=== PATIENT | female | born 1945 | race Caucasian/White ===

== ENCOUNTER 2021-04-13 05:39 | Outpatient (CLI) | payer MEDICARE, OTHER ==
[~2021-04-13] VITALS: Ht 170.2 cm; Wt 72.6 kg
[2021-04-13] MEDS ORDERED: CITA40TA11 PO (10:21)
[2021-04-13] MEDS ORDERED: MV-M1TAB20 PO (10:21)
[2021-04-13] MEDS ORDERED: VITA1CAP19 PO (10:21)
[2021-04-13] MEDS ORDERED: ROSU10TA28 PO (10:21)
[2021-04-13] MEDS ORDERED: OLME20TA24 PO (10:21)
[2021-04-13] MEDS ORDERED: MULT400C3 PO (10:21)
[2021-04-13] MEDS ORDERED: NF-VITD400 PO (10:22)
== END 2021-04-13 10:27 | disposition home or self-care (01) ==
LOC: PREOP 05:39
PROVIDERS: ATTEND Surgery
DX: Z01.812 Encounter for preprocedural laboratory examination (principal); M99.86 Other biomechanical lesions of lower extremity

== ENCOUNTER 2021-04-15 11:00 | Day surgery (SDC) | payer MEDICARE, OTHER ==
[2021-04-15] VITALS (9 sets, daily range): BP systolic 123–182; BP diastolic 65–94
[~2021-04-15] VITALS: Ht 170.2 cm; Wt 72.6 kg
[~2021-04-15 11:00] MED LIST: CITA40TA11 PO; LIDOCAINE/EPI 1%-1:100,000 (XYLOCAINE) 20ML ONE; MULT400C3 PO; MV-M1TAB20 PO; NF-VITD400 PO; OLME20TA24 PO; ROSU10TA28 PO; VITA1CAP19 PO
[2021-04-15] MEDS ORDERED: ceFAZolin INJECTION 1,000 MG in WATER (STERILE) FOR INJECTION 10 ML IV ONE (11:15)
[2021-04-15] MEDS ORDERED: LACTATED RINGERS 1,000 ML IV PRN (11:15)
--- NOTE | 2021-04-15 11:37 | Progress Note-Pre Operative ---
Pre-Operative Progress Note H&P Reviewed The H&P was reviewed, patient examined and no changes noted. Date Seen by Provider: April 15, 2021 Time Seen by Provider: 11:37 Date H&P Reviewed: April 15, 2021 Time H&P Reviewed: 11:37 Pre-Operative Diagnosis: LEFT LEG SKIN LESION SIMONA BRADY DO April 15, 2021 11:37
[2021-04-15] MEDS ORDERED: MIDAZOLAM 2 MG/2 ML (VERSED) VIAL ONE (12:08)
[2021-04-15] MEDS ORDERED: fentaNYL INJ 100 MCG/2 ML AMP ONE (12:08)
[2021-04-15] MEDS ORDERED: SEVOFLURANE (ULTANE) 15 ML INHAL SOLN ONE (12:29)
[2021-04-15] MEDS ORDERED: proPOfol 200 MG/20 ML (DIPRIVAN) VIAL IV ONE (12:29)
[2021-04-15] MEDS ORDERED: ONDANSETRON 4 MG/2 ML (SDV) Z0FRAN ONE (12:29)
[2021-04-15] MEDS ORDERED: NEO/POLY/BAC (NEOSPORIN) OINT 15 GM TUBE ONE (12:51)
[2021-04-15] MEDS ORDERED: LIDOCAINE PF 2% 5 ML (XYLOCAINE) VIAL ONE (12:52)
--- NOTE | 2021-04-15 13:12 | Anesthesia-General Post-Op ---
General Patient Condition Mental Status/LOC: Same as Preop Cardiovascular: Satisfactory Nausea/Vomiting: Absent Respiratory: Satisfactory Pain: Controlled Complications: Absent Post Op Complications Complications None Follow Up Care/Instructions Patient Instructions None needed. Anesthesia/Patient Condition Patient Condition Patient is doing well, no complaints, stable vital signs, no apparent adverse anesthesia problems. No complications reported per nursing. VIANEY DIALLO CRNA April 15, 2021 13:12
--- NOTE | 2021-04-15 13:13 | Progress Note-Post Operative ---
Post-Operative Progess Note Surgeon (s)/Crystallographer (s) Surgeon SIMONA BRADY DO Crystallographer: na Pre-Operative Diagnosis LEFT LEG SKIN LESION Post-Operative Diagnosis same Procedure & Operative Findings Date of Procedure 04/15/21 Procedure Performed/Findings excision left lower extremity skin lesion 7x 3.5 cm Anesthesia Type general Estimated Blood Loss Estimated blood loss (mL): min Specimens/Packing Specimens Removed left lower ext skin lesion SIMONA BRADY DO April 15, 2021 13:13
[2021-04-15] MEDS ORDERED: ONDANSETRON 4 MG/2 ML (SDV) Z0FRAN IVP PRN (13:15)
[2021-04-15] MEDS ORDERED: PROMETHAZINE INJ 25 MG/ML (PHENERGAN) AMP IVP ONE (13:15)
[2021-04-15] MEDS ORDERED: morphine INJ 10 MG/ML 1ML (SYR OR VIAL) IVP ONE (13:15)
--- NOTE | 2021-04-15 13:15 | Discharge Inst-Simple/Standard ---
Discharge Inst-Standard Patient Instructions/Follow Up Plan of Care/Instructions/FU: 12-14 days Angella Activity as Tolerated: No Discharge Diet: Regular Diet Other Inst to Patient Follow up Appt: Make appointment for 12-14 days Angella Instructions: No strenuous activity. May shower in 24 hours, no tub bath or soaking. Use incentive spirometer at home as directed. No Smoking Skin/Wound Care: Keep incision clean and dry. Symptoms to Report: Appetite Changes, Extremity Discoloration, Numbness/Tingling, Swelling Increased, Bleeding Excessive, Eyesight Changes, Pain Increased, Urine Color Change, Constipation(Persistent), Fever over 101 degree F, Pain/Pressure in chest, Urinating Difficulty, Cough Up/Vomit Blood, Heart Beat Irreg/Pounding, Pain/Pressure in jaw, Vaginal Bleeding Increase, Cramps in feet or legs, Lightheadedness, Pain/Pressure in shoulder, Diarrhea(Persistent), Memory Changes Suddenly, Questions/Concerns, Weight gain consecutive days, Dizziness/Fainting, Nausea/Vomiting, Shortness of Breath, Weight gain over 2 pounds If questions or concerns contact your physician Or seek help at emergency department. SIMONA BRADY DO April 15, 2021 13:14
--- NOTE | 2021-04-15 19:51 | OPERATIVE REPORT ---
DATE OF SERVICE: 04/15/2021 PREOPERATIVE DIAGNOSIS: Left lower extremity skin lesion. POSTOPERATIVE DIAGNOSIS: Left lower extremity skin lesion. PROCEDURE: Excision of left lower extremity skin lesion 7 x 3.5 cm. SURGEON: Simona Perales DO ANESTHESIA: General. ESTIMATED BLOOD LOSS: Minimal. COMPLICATIONS: None. INDICATIONS: The patient is a 75-year-old female with a left lower extremity skin lesion increasing in size. She understands risks and benefits of procedure and wished to proceed with procedure. Consent was signed in the chart. DESCRIPTION OF PROCEDURE: The patient was taken to the operating suite. She was prepped and draped in sterile fashion. Timeout was performed. Local anesthetic was infiltrated. A 15-blade scalpel was used to make a skin incision measuring 7 x 3.5 cm. Cautery was used to dissect around the lesion removing the skin and subcutaneous tissue. The skin was then elevated circumferentially with cautery. The skin was then able to be closed using 0 Prolene in simple interrupted fashion. The area was then washed and dried, sterile bandage was applied. The patient tolerated procedure well without any complications. She was taken to recovery room in stable condition. Further recommendations pending biopsy results, pending pathology results. Job ID: [id number] DocumentID: [id number] Dictated Date: 04/15/2021 14:52:45 Special Client Bus Driver Date: 04/15/2021 19:51:11 Dictated By: SIMONA PERALES DO
== END 2021-04-15 15:30 | disposition home or self-care (01) ==
LOC: SDC 11:00
PROVIDERS: ATTEND Surgery
DX: C76.52 Malignant neoplasm of left lower limb (principal); I10 Essential (primary) hypertension; E78.00 Pure hypercholesterolemia, unspecified; E78.5 Hyperlipidemia, unspecified; Z79.899 Other long term (current) drug therapy; Z90.710 Acquired absence of both cervix and uterus
CPT/HCPCS: 87081

== ENCOUNTER → 2022-03-09 | Outpatient (CLI) | payer MEDICARE, OTHER ==
[~2022-03-09] MED LIST changes: -CITA40TA11 PO; +CITA40TA13 PO; -LIDOCAINE/EPI 1%-1:100,000 (XYLOCAINE) 20ML ONE
--- NOTE | 2022-03-09 11:39 | Diagnostic Imaging Report ---
INDICATION: Short of breath. COMPARISON: None. FINDINGS: Frontal and lateral views of the chest demonstrate normal heart size and pulmonary vascularity. The lungs are clear. There are no signs of infiltrate, pleural effusions or pneumothoraces. The visualized osseous structures show no acute abnormalities. IMPRESSION: 1. No acute process. No signs of infiltrates, effusions or pneumothoraces. Dictated by: Dictated on workstation # [id number]
== END ==
LOC: RAD 11:03
PROVIDERS: ATTEND Family Medicine
DX: R06.02 Shortness of breath (principal)
CPT/HCPCS: 71046

== ENCOUNTER → 2022-03-31 | Outpatient (CLI) | payer MEDICARE, OTHER ==
[2022-03-31 13:42] LABS: BASOPHILS # (AUTO) 0.1 10^3/uL (0.0-0.1); BASOPHILS % (AUTO) 1 % (0-10); EOSINOPHILS # (AUTO) 0.2 10^3/uL (0.0-0.3); EOSINOPHILS % (AUTO) 3 % (0-10); HEMATOCRIT 40 % (35-52); HEMOGLOBIN 13.1 g/dL (11.5-16.0); LYMPHOCYTES # (AUTO) 1.8 10^3/uL (1.0-4.0); LYMPHOCYTES % (AUTO) 33 % (12-44); MEAN CORPUSCULAR HEMOGLOBIN 30 pg (25-34); MEAN CORPUSCULAR HGB CONC 33 g/dL (32-36); MEAN CORPUSCULAR VOLUME 89 fL (80-99); MEAN PLATELET VOLUME 9.4 fL (9.0-12.2); MONOCYTES # (AUTO) 0.6 10^3/uL (0.0-1.0); MONOCYTES % (AUTO) 10 % (0-12); NEUTROPHILS # (AUTO) 2.8 10^3/uL (1.8-7.8); NEUTROPHILS % (AUTO) 52 % (42-75); PLATELET COUNT 244 10^3/uL (130-400); WHITE BLOOD COUNT 5.3 10^3/uL (4.3-11.0)
[2022-03-31 13:57] LABS: ALBUMIN 4.1 GM/DL (3.2-4.5); BILIRUBIN,TOTAL 0.6 MG/DL (0.1-1.0); CALCIUM 9.7 MG/DL (8.5-10.1); CREATININE SERUM 0.69 MG/DL (0.60-1.30); POTASSIUM 4.5 MMOL/L (3.6-5.0); TOTAL PROTEIN 7.1 GM/DL (6.4-8.2)
== END ==
LOC: LAB 13:27
PROVIDERS: ATTEND Family Medicine
DX: N28.9 Disorder of kidney and ureter, unspecified (principal)
CPT/HCPCS: 36415; 80053; 84443; 85025

== ENCOUNTER → 2022-04-19 | Outpatient (CLI) | payer MEDICARE, OTHER ==
[~2022-04-19] MED LIST changes: +CATHETER FLUSH 10 ML SYR IV PRN; +HOLD METFORMIN - RECEIVED CONTRAST 20 ML VIAL IV SCH; +IOHEXOL 350 MG/ML 100 ML (OMNIPAQUE 350) VIAL IV ONE; +NS 100 ML (IVPB) BAG IV ONE; +RT-ALBUTEROL SULF 2.5 MG/3 ML PRE-MIX VIAL INH ONE
--- NOTE | 2022-04-19 09:39 | Diagnostic Imaging Report ---
EXAMINATION: CT chest with intravenous contrast. TECHNIQUE: Multiple contiguous axial images were obtained through the chest after the uneventful administration of intravenous contrast. All CT scans use one or more of the following dose optimizing techniques: automated exposure control, MA and/or KvP adjustment based on patient size and exam type or iterative reconstruction. HISTORY: Shortness of breath. COVID in the fall 2020. COMPARISON: 03/09/2022. FINDINGS: The heart size is within normal limits. No pericardial effusion is present. There is calcified aortic and coronary atherosclerotic plaque without aneurysm. There is no mediastinal, hilar, or axillary lymphadenopathy. Nodules are seen in the right lower lobe measuring 0.9 cm. These have a somewhat tubular appearance. There are no focal areas of consolidation. No central endobronchial obstructing lesions are identified. There is no pleural effusion or pneumothorax. The osseous structures demonstrate no acute abnormalities. Limited views of the upper abdominal structures demonstrate no acute abnormalities. Both adrenal glands are unremarkable. IMPRESSION: 1. Nodule in the right lower lobe measuring up to 0.9 cm with a somewhat tubular appearance. These findings are favored to be benign however given the size of the nodule follow-up is recommended in 3-[address] to ensure stability or resolution. 2. No focal consolidations. No evidence of pulmonary fibrosis or significant pulmonary scarring. Dictated by: Dictated on workstation # [id number]
== END ==
LOC: RT 08:42
PROVIDERS: ATTEND Family Medicine
DX: R91.1 Solitary pulmonary nodule (principal); R06.02 Shortness of breath; R53.83 Other fatigue; Z86.16 Personal history of COVID-19
CPT/HCPCS: 71260; 94060; 94726; 94729

== ENCOUNTER 2022-08-21 17:23 | Observation (INO) | payer MEDICARE, OTHER ==
[~2022-08-21] VITALS: Ht 167.7 cm; Wt 71.8 kg
[~2022-08-21 17:23] MED LIST changes: -CATHETER FLUSH 10 ML SYR IV PRN; -HOLD METFORMIN - RECEIVED CONTRAST 20 ML VIAL IV SCH; -IOHEXOL 350 MG/ML 100 ML (OMNIPAQUE 350) VIAL IV ONE; -NS 100 ML (IVPB) BAG IV ONE; -RT-ALBUTEROL SULF 2.5 MG/3 ML PRE-MIX VIAL INH ONE
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
[2022-08-21 17:45] LABS: BASOPHILS % (AUTO) 1 % (0-10); EOSINOPHILS % (AUTO) 0 % (0-10); HEMATOCRIT 39 % (35-52); LYMPHOCYTES # (AUTO) 1.5 10^3/uL (1.0-4.0); LYMPHOCYTES % (AUTO) 20 % (12-44); MEAN CORPUSCULAR HEMOGLOBIN 29 pg (25-34); MEAN CORPUSCULAR HGB CONC 34 g/dL (32-36); MEAN CORPUSCULAR VOLUME 88 fL (80-99); MEAN PLATELET VOLUME 10.1 fL (9.0-12.2); MONOCYTES # (AUTO) 0.4 10^3/uL (0.0-1.0); MONOCYTES % (AUTO) 5 % (0-12); NEUTROPHILS # (AUTO) 5.3 10^3/uL (1.8-7.8); NEUTROPHILS % (AUTO) 73 % (42-75); PLATELET COUNT 294 10^3/uL (130-400); WHITE BLOOD COUNT 7.2 10^3/uL (4.3-11.0)
[2022-08-21 17:49] LABS: ALBUMIN 4.1 GM/DL (3.2-4.5)
[2022-08-21 17:50] LABS: CHLORIDE 102 MMOL/L (98-107); POTASSIUM 4.1 MMOL/L (3.6-5.0); SODIUM 134 MMOL/L (135-145)
[2022-08-21 17:51] LABS: CALCIUM 9.2 MG/DL (8.5-10.1); PROTHROMBIN TIME PATIENT 13.9 SEC (12.2-14.7)
[2022-08-21 17:52] LABS: GLUCOSE 163 MG/DL (70-105); TOTAL PROTEIN 7.4 GM/DL (6.4-8.2)
[2022-08-21 17:53] LABS: CARBON DIOXIDE 23 MMOL/L (21-32)
[2022-08-21 17:54] LABS: BILIRUBIN,TOTAL 0.7 MG/DL (0.1-1.0)
[2022-08-21 17:55] LABS: ALKALINE PHOSPHATASE 82 U/L (40-136)
[2022-08-21 17:56] LABS: CREATININE SERUM 0.79 MG/DL (0.60-1.30); GFR ESTIMATED 77
[2022-08-21 17:57] LABS: BUN/CREATININE RATIO 24
[2022-08-21 17:58] LABS: ALANINE AMINOTRANSFERASE 9 U/L (0-55)
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
--- NOTE | 2022-08-21 18:05 | Diagnostic Imaging Report ---
EXAM: Chest 1 view, AP/PA only INDICATION: Syncope. COMPARISON: Chest radiograph 03/09/2022. FINDINGS: Normal heart size and central pulmonary vascularity. Lungs are clear. No pleural effusion or pneumothorax. No acute osseous finding. IMPRESSION: No acute cardiopulmonary finding. Dictated by: Dictated on workstation # [id number]
[2022-08-21 18:08] VITALS: BP_SYST 125; BP_SYST 128; BP_SYST 137; BP_DIAS 51; BP_DIAS 62; BP_DIAS 70
[2022-08-21 18:21] LABS: AMPHETAMINE SCREEN, URINE NEGATIVE (NEGATIVE); BARBITURATE SCREEN URINE NEGATIVE (NEGATIVE); BENZODIAZEPINES SCREEN URINE POSITIVE (NEGATIVE); CANNABINOID SCREEN, URINE NEGATIVE (NEGATIVE); COCAINE SCREEN URINE NEGATIVE (NEGATIVE); METHADONE STAT NEGATIVE (NEGATIVE); OPIATE SCREEN URINE NEGATIVE (NEGATIVE); OXYCODONE STAT NEGATIVE (NEGATIVE); PROPOXYPHENE STAT NEGATIVE (NEGATIVE); TRICYCLIC ANTIDEPRESSANTS SCRE NEGATIVE (NEGATIVE)
[2022-08-21 18:39] LABS: BILIRUBIN,URINE NEGATIVE (NEGATIVE); CLARITY,URINE CLEAR; COLOR,URINE YELLOW; GLUCOSE, URINE (UA) NEGATIVE (NEGATIVE); KETONES,URINE NEGATIVE (NEGATIVE); LEUKOCYTE ESTERASE ,URINE TRACE (NEGATIVE); NITRITE,URINE NEGATIVE (NEGATIVE); PROTEIN,URINE NEGATIVE (NEGATIVE)
[2022-08-21 18:49] LABS: BACTERIA,URINE TRACE /HPF
[2022-08-21 19:59] VITALS: BP 142/63
[2022-08-21] MEDS ORDERED: BISACODYL 10 MG SUPP (DULCOLAX) PR PRN (20:15)
[2022-08-21] MEDS ORDERED: ONDANSETRON 4 MG/2 ML (SDV) Z0FRAN IV PRN (20:15)
[2022-08-21] MEDS ORDERED: LACTULOSE SYRUP 10GM/15ML (ENULOSE) 30ML UDC PO PRN (20:15)
[2022-08-21] MEDS ORDERED: NS IV 500 ML 500 ML IV PRN (20:15)
[2022-08-21] MEDS ORDERED: MILK OF MAGNESIA 400 MG/5 ML 30 ML UDC PO PRN (20:15)
[2022-08-21] MEDS ORDERED: polyethylene glycoL POWDER 17 GM (MIRALAX) PACK PO PRN (20:15)
[2022-08-21] MEDS ORDERED: diphenhydrAMINE 50 MG/ML INJ (BENADRYL) IVP PRN (20:15)
[2022-08-21] MEDS ORDERED: diphenhydrAMINE 25 MG TAB (BENADRYL) PO PRN (20:15)
[2022-08-21] MEDS ORDERED: ONDANSETRON 4 MG (ZOFRAN) ORAL DISSOLVE TAB PO PRN (20:15)
[2022-08-21] MEDS ORDERED: CALCIUM CARBONATE 500 MG (TUMS) TAB.CHEW PO PRN (20:15)
[2022-08-21] MEDS ORDERED: MELATONIN 3 MG TABLET PO PRN (20:15)
[2022-08-21] MEDS ORDERED: ACETAMINOPHEN 325 MG TABLET PO PRN (20:15)
[2022-08-21] MEDS ORDERED: ANTACID SUSP 30 ML UDC (MYLANTA) PO PRN (20:15)
[2022-08-21] MEDS ORDERED: ENOXAPARIN 40 MG/0.4 ML (LOVENOX) SYR SC SCH (21:00)
[2022-08-21 22:03] VITALS: BP 131/78
[2022-08-21] MEDS: SENNOSIDES 8.6 MG (SENOKOT) TAB PO SCH (22:05)
[2022-08-21] MEDS: DOCUSATE SODIUM 100 MG (COLACE) CAP PO SCH (22:05)
[2022-08-21] MEDS: NS IV 1000 ML 1,000 ML IV SCH (22:15)
[2022-08-21 23:57] VITALS: BP 126/57
[2022-08-22] VITALS (35 sets, daily range): BP systolic 77–149; BP diastolic 45–73
[2022-08-22 05:33] LABS: HEMATOCRIT 36 % (35-52); HEMOGLOBIN 11.7 g/dL (11.5-16.0); MEAN CORPUSCULAR HEMOGLOBIN 29 pg (25-34); MEAN CORPUSCULAR HGB CONC 33 g/dL (32-36); MEAN CORPUSCULAR VOLUME 89 fL (80-99); MEAN PLATELET VOLUME 10.1 fL (9.0-12.2); PLATELET COUNT 232 10^3/uL (130-400); WHITE BLOOD COUNT 6.4 10^3/uL (4.3-11.0)
[2022-08-22 05:46] LABS: POTASSIUM 3.9 MMOL/L (3.6-5.0)
[2022-08-22 05:47] LABS: CALCIUM 8.8 MG/DL (8.5-10.1)
[2022-08-22 05:52] LABS: CREATININE SERUM 0.68 MG/DL (0.60-1.30)
[2022-08-22 05:54] LABS: MAGNESIUM 1.9 MG/DL (1.6-2.4)
[2022-08-22] MEDS ORDERED: KCL 20 MEQ TAB (K-DUR) PO SCH (06:00)
[2022-08-22] MEDS ORDERED: POTASSIUM CL 10MEQ/50ML IVPB 50 ML IV SCH (06:00)
[2022-08-22] MEDS ORDERED: MAGNESIUM 1 GM/100 ML IVPB 100 ML IV SCH (06:00)
[2022-08-22] MEDS: DOCUSATE SODIUM 100 MG (COLACE) CAP PO SCH (08:27)
[2022-08-22] MEDS: SENNOSIDES 8.6 MG (SENOKOT) TAB PO SCH (08:28)
[2022-08-22] MEDS ORDERED: ATROPINE INJECTION 1 MG/10 ML SYR (ABBOTT) ONE (09:07)
[2022-08-22] MEDS ORDERED: NS IV 1000 ML 1,000 ML ONE (09:07)
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
[2022-08-22] MEDS: NS IV 1000 ML 1,000 ML IV SCH (09:35)
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
--- NOTE | 2022-08-22 10:30 | Cardiology Tilt Table Test ---
Cardiology-Tilt Table Test Tilt Table Test Date 08/22/22 Baseline Vitals Vital Signs Date Time Temp Pulse Resp B/P (MAP) Pulse Ox O2 Delivery O2 Flow Rate FiO2 08/21/22 17:35 36.2 73 12 137/58 (84) 96 Room Air Vital Signs VS - Last 72 Hours, by Label 08/21/22 08/21/22 08/21/22 08/21/22 17:35 18:08 19:52 19:58 Temp 36.2 Pulse 73 66 65 66 76 87 Resp 12 18 B/P (MAP) 137/58 (84) 128/51 (76) 125/58 125/62 (83) 137/70 (92) Pulse Ox 96 98 O2 Delivery Room Air Room Air 08/21/22 08/21/22 08/21/22 08/21/22 19:59 20:00 20:45 22:03 Temp 36.6 Pulse 66 35 70 Resp 36 16 B/P (MAP) 142/63 (88) 131/78 (107) Pulse Ox 100 96 99 O2 Delivery Room Air Room Air Room Air 08/21/22 08/21/22 08/22/22 08/22/22 22:56 23:57 00:00 00:00 Temp 35.8 Pulse 30 66 65 Resp 18 15 B/P (MAP) 126/57 (80) 125/59 (87) Pulse Ox 99 97 96 O2 Delivery Room Air Room Air Room Air 08/22/22 08/22/22 08/22/22 08/22/22 00:35 01:00 03:33 04:00 Temp 36.5 Pulse 30 65 71 70 Resp 16 10 B/P (MAP) 109/47 (67) 131/62 (91) Pulse Ox 100 99 O2 Delivery Room Air Room Air 08/22/22 08/22/22 08/22/22 08/22/22 04:00 04:24 04:25 07:01 Pulse 67 79 Resp 13 B/P (MAP) 125/63 (79) 110/66 (72) Pulse Ox 96 O2 Delivery Room Air 08/22/22 08/22/22 08/22/22 08/22/22 08:00 08:00 09:45 09:46 Temp 36.7 Pulse 65 75 62 71 Resp 16 12 16 14 B/P (MAP) 119/54 (75) 116/50 (72) 120/65 (83) 127/61 (83) Pulse Ox 97 99 98 97 O2 Delivery Room Air Room Air Room Air Room Air 08/22/22 08/22/22 08/22/22 08/22/22 09:47 09:48 09:49 09:50 Pulse 71 73 74 75 Resp 14 16 16 14 B/P (MAP) 126/65 (85) 114/68 (83) 132/64 (86) 140/63 (88) Pulse Ox 100 98 98 99 O2 Delivery Room Air Room Air Room Air Room Air 08/22/22 08/22/22 08/22/22 08/22/22 09:52 09:53 09:55 09:56 Pulse 78 81 75 78 Resp 16 19 18 17 B/P (MAP) 140/61 (87) 142/68 (92) 141/64 (89) 141/73 (95) Pulse Ox 100 100 100 97 O2 Delivery Room Air Room Air Room Air Room Air 08/22/22 08/22/22 08/22/22 08/22/22 09:58 09:59 10:00 10:01 Pulse 79 73 76 89 Resp 16 16 16 16 B/P (MAP) 142/65 (90) 149/72 (97) 134/69 (90) Pulse Ox 97 97 95 94 O2 Delivery Room Air Room Air Room Air Room Air 08/22/22 08/22/22 08/22/22 08/22/22 10:01 10:02 10:02 10:03 Pulse 78 111 96 106 Resp 14 16 16 16 B/P (MAP) 134/70 (91) 91/45 (60) 77/60 (66) Pulse Ox 95 95 94 97 O2 Delivery Room Air Room Air Room Air Room Air 08/22/22 08/22/22 08/22/22 08/22/22 10:04 10:05 10:06 10:07 Pulse 105 105 99 105 Resp 14 16 14 16 B/P (MAP) 82/47 (59) 78/46 (57) 86/45 (59) 111/62 (78) Pulse Ox 96 95 96 98 O2 Delivery Room Air Room Air Room Air Room Air 08/22/22 08/22/22 08/22/22 08/22/22 10:09 10:11 10:12 10:13 Pulse 98 97 98 90 Resp 15 16 16 16 B/P (MAP) 106/56 (73) 93/55 (68) 99/53 (68) 96/45 (62) Pulse Ox 98 97 97 96 O2 Delivery Room Air Room Air Room Air Room Air 08/22/22 08/22/22 08/22/22 08/22/22 10:15 10:16 10:20 10:21 Pulse 98 77 66 69 Resp 14 16 16 16 B/P (MAP) 102/51 (68) 135/65 (88) 127/62 (83) 130/62 (84) Pulse Ox 95 96 97 98 O2 Delivery Room Air Room Air Room Air Room Air Patient was tilted to 75 degrees for [10] minutes, then returned to supine position, given [2] sublingual nitroglycerin tablets, then tilted again to 75 degrees for [15] minutes. During test, patient was: asymptomatic In Conclusion;: Negative Tilt Table Test Patient had transient episode with hypotension with a blood pressure as low as 78/46, heart rate was 110. Did not have any syncopal episode. Conclusion: Transient hypotension without full syncope. CRYSTAL FUCHS MD Aug 22, 2022 10:30
[2022-08-22] MEDS ORDERED: FLUDROCORTISONE 0.1 MG (FLORINEF) TAB PO SCH (11:00)
[2022-08-22] MEDS ORDERED: ZINC50TA51 PO (11:02)
--- NOTE | 2022-08-22 11:45 | Physical Therapy Progress Note ---
Therapy Progress Note Patient declined PT intervention due to she report she is independent and doesn't need it. Patient reports she is going home today and will receive a heart monitor to record for 2 weeks. RN confirms. No skilled PT indicated. 1 visit JUNIOR BRONSON PT Aug 22, 2022 11:45
[2022-08-22] MEDS ORDERED: FLDR.1T PO (11:52)
--- NOTE | 2022-08-22 11:53 | Discharge Inst-Simple/Standard ---
Discharge Inst-Standard Discharge Medications New, Converted or Re-Newed RX: Transmitted to Pharmacy Patient Instructions/Follow Up Plan of Care/Instructions/FU: Please continue to take your medications as written. Please follow up with your primary care doctor to follow up this hospital stay. Activity as Tolerated: Yes Discharge Diet: No Restrictions Return to The Hospital For: Chest pain, passing out, palpitations, shortness of breath, fever, weakness, if you feel you are getting worse. ELIZABETH TAVERAS MD Aug 22, 2022 11:53
--- NOTE | 2022-08-22 14:11 | Occ Therapy Progress Note ---
Therapy Progress Note OT orders received and chart reviewed. Pt discharged prior to OT evaluation being complete. D.C from OT TENISHA JAY OT Aug 22, 2022 14:11
== END 2022-08-22 12:00 | disposition home or self-care (01) ==
LOC: EDUNIT# 17:23 → ER 17:23 → UNDOADMOB 18:36 → CSD 18:36 → UNDODISOB 08-22 12:00
PROVIDERS: ADMIT Internal Medicine; ATTEND Internal Medicine
DX: R55 Syncope and collapse (principal); I10 Essential (primary) hypertension; E78.5 Hyperlipidemia, unspecified; Z79.899 Other long term (current) drug therapy; Z86.16 Personal history of COVID-19; F41.9 Anxiety disorder, unspecified
CPT/HCPCS: 70450; 71045; 80048; 80053; 80306; 81000; 83735; 83880; 84484; 85025; 85027; 85610; 85730; 87077; 87088; 87186; 93005; 93660; 96372; 96375; 99283; C8929; G0378; G0480; 36415; 80320; 93306

== ENCOUNTER 2022-08-27 13:31 | Emergency (ER) | payer MEDICARE, OTHER ==
[~2022-08-27] VITALS: Ht 167.7 cm; Wt 58.9 kg
[~2022-08-27 13:31] MED LIST changes: +FLDR.1T PO; +ZINC50TA51 PO
--- NOTE | 2022-08-27 13:54 | ED General ---
General Chief Complaint: Cardiac/General Problems Stated Complaint: SOA/CHEST PRESSURE/DIZZINESS Nursing Triage Note: PT AMB TO [facility] 5 WITH COMPLAINT OF SOA. STATES FEELS LIKE SHE CANNOT GET ENOUGH AIR. FEELS CHEST HEAVINESS. Source of Information: Patient Exam Limitations: No Limitations History of Present Illness Date Seen by Provider: Aug 27, 2022 Time Seen by Provider: 13:31 Initial Comments 77-year-old female with history of psoriasis presents to the emergency department for shortness of breath, chest tightness. Symptoms started about 11:00 or midnight last night that have been persistent. Symptoms off and on for the last couple of years per her report. She did have COVID a couple of months ago and thinks her symptoms have worsened since that time. Overall she has had pulmonary function testing and a treadmill stress test which were both normal. She was seen here few months ago and given an albuterol inhaler and took that this morning and states it helped fairly dramatically. She describes diffuse chest tightness with radiation into her "thorax." No aggravating or alleviating factors. No associated symptoms. Pain is mild. Allergies and Home Medications Allergies Coded Allergies: No Known Drug Allergies (Unverified , 11/03/10) Patient Home Medication List Home Medication List Reviewed: Yes Citalopram Hydrobromide (Citalopram HBr) 40 Mg Tablet, 40 MG PO HS, (Reported) Entered as Reported by: ANANTH REINA on 04/13/21 1021 Fludrocortisone Acetate (Fludrocortisone Acetate) 0.1 Mg Tab, 0.1 MG PO DAILY Prescribed by: ELIZABETH TAVERAS on 08/22/22 1152 Multivit-Min/Folic Acid/Vit K1 (Multi For Her 50 Plus Softgel) 1 Each Capsule, 1 EACH PO DAILY, (Reported) Entered as Reported by: ANANTH REINA on 04/13/21 1021 Rosuvastatin Calcium (Rosuvastatin Calcium) 10 Mg Tablet, 10 MG PO HS, (Reported) Entered as Reported by: ANANTH REINA on 04/13/21 1021 Vitamin D (Vitamin D3) 10 Mcg Tablet, 400 MCG PO DAILY, (Reported) Entered as Reported by: ANANTH REINA on 04/13/21 1022 Zinc Amino Acid Chelate (Zinc) 50 Mg Tablet, 50 MG PO DAILY, (Reported) Entered as Reported by: JENNIFER GOLDBERG on 08/22/22 1102 Discontinued Medications Olmesartan Medoxomil (Olmesartan Medoxomil) 20 Mg Tablet, 10 MG PO DAILY, (Reported) Entered as Reported by: ANANTH REINA on 04/13/21 1021 Review of Systems Review of Systems Constitutional: no symptoms reported EENTM: no symptoms reported Respiratory: short of breath Cardiovascular: chest pain Gastrointestinal: no symptoms reported Genitourinary: no symptoms reported Musculoskeletal: no symptoms reported Skin: no symptoms reported Psychiatric/Neurological: No Symptoms Reported Hematologic/Lymphatic: No Symptoms Reported Immunological/Allergic: no symptoms reported Past Tihbrwf-Kwggaf-Rynzqv Hx Patient Social History Tobacco Use?: No Smoking Status: Unknown if Ever Smoked Smokeless Tobacco Frequency: Unknown if Ever Used Use of E-Cig and/or Vaping dev: No Use of E-Cig and/or Vaping [place]: User Current Status Unk Substance use?: No Alcohol Use?: No Immunizations Up To Date First/Initial COVID19 Vaccinat: JANUARY 2021 Second COVID19 Vaccination Dashawn: JANUARY 2021 Third COVID19 Vaccination Date: JANUARY 2021 Seasonal Allergies Seasonal Allergies: No Past Medical History Surgery/Hospitalization HX: HIGH CHOLESTEROL Surgeries: Yes (LASIK SURGERY) Adenoidectomy, Appendectomy, Eye Surgery, Hysterectomy, Tonsillectomy Respiratory: No Currently Using CPAP: No Currently Using BIPAP: No Cardiac: Yes High Cholesterol, Hypertension Neurological: No 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 oz. kg; 20.00 BMI Method: General Appearance: No Apparent Distress, WD/WN HEENT: PERRL/EOMI, TMs Normal, Normal ENT Inspection, Pharynx Normal Neck: Full Range of Motion, Normal Inspection, Non Tender, Supple Respiratory: Chest Non Tender, Lungs Clear, Normal Breath Sounds, No Accessory Muscle Use, No Respiratory Distress Cardiovascular: Regular Rate, Rhythm, No Edema, No Gallop, No JVD, No Murmur, Normal Peripheral Pulses Gastrointestinal: Normal Bowel Sounds, No Organomegaly, No Pulsatile Mass, Non Tender, Soft Back: Normal Inspection, No CVA Tenderness, No Vertebral Tenderness Extremity: Normal Capillary Refill, Normal Inspection, Normal Range of Motion, Non Tender, No Calf Tenderness, No Pedal Edema Neurologic/Psychiatric: Alert, Oriented x3, No Motor/Sensory Deficits, Normal 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, 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 Skin: Normal Color, Warm/Dry Lymphatic: No Adenopathy Progress/Results/Core Measures Suspected Sepsis SIRS Temperature: Pulse: 81 Respiratory Rate: 20 Laboratory Tests 08/27/22 13:40: White Blood Count 6.4 Blood Pressure 182 /80 Mean: 114 Laboratory Tests 08/27/22 13:40: Creatinine 0.83, Platelet Count 217, Total Bilirubin 0.5 Results/Orders Lab Results Laboratory Tests Test 08/27/22 13:40 Range/Units White Blood Count 6.4 4.3-11.0 10^3/uL Red Blood Count 3.77 L 3.80-5.11 10^6/uL Hemoglobin 11.1 L 11.5-16.0 g/dL Hematocrit 34 L 35-52 % Mean Corpuscular Volume 89 80-99 fL Mean Corpuscular Hemoglobin 29 25-34 pg Mean Corpuscular Hemoglobin Concent 33 32-36 g/dL Red Cell Distribution Width 13.2 10.0-14.5 % Platelet Count 217 130-400 10^3/uL Mean Platelet Volume 9.7 9.0-12.2 fL Immature Granulocyte % (Auto) 0 % Neutrophils (%) (Auto) 58 42-75 % Lymphocytes (%) (Auto) 30 12-44 % Monocytes (%) (Auto) 9 0-12 % Eosinophils (%) (Auto) 3 0-10 % Basophils (%) (Auto) 1 0-10 % Neutrophils # (Auto) 3.7 1.8-7.8 10^3/uL Lymphocytes # (Auto) 1.9 1.0-4.0 10^3/uL Monocytes # (Auto) 0.6 0.0-1.0 10^3/uL Eosinophils # (Auto) 0.2 0.0-0.3 10^3/uL Basophils # (Auto) 0.0 0.0-0.1 10^3/uL Immature Granulocyte # (Auto) 0.0 0.0-0.1 10^3/uL Sodium Level 142 135-145 MMOL/L Potassium Level 3.8 3.6-5.0 MMOL/L Chloride Level 108 H 98-107 MMOL/L Carbon Dioxide Level 26 21-32 MMOL/L Anion Gap 8 5-14 MMOL/L Blood Urea Nitrogen 12 7-18 MG/DL Creatinine 0.83 0.60-1.30 MG/DL Estimat Glomerular Filtration Rate 73 BUN/Creatinine Ratio 14 Glucose Level 95 70-105 MG/DL Calcium Level 8.7 8.5-10.1 MG/DL Corrected Calcium 9.0 8.5-10.1 MG/DL Total Bilirubin 0.5 0.1-1.0 MG/DL Aspartate Amino Transf (AST/SGOT) 16 5-34 U/L Alanine Aminotransferase (ALT/SGPT) 9 0-55 U/L Alkaline Phosphatase 88 40-136 U/L Troponin I < 0.028 <0.028 NG/ML Total Protein 6.3 L 6.4-8.2 GM/DL Albumin 3.6 3.2-4.5 GM/DL My Orders Orders - ABDULLAHIGERTRUED DO Ekg Tracing (08/27/22 13:35) Ekg Tracing (08/27/22 13:35) Cbc With Automated Diff (08/27/22 13:48) Chest 1 View, Ap/Pa Only (08/27/22 13:48) Comprehensive Metabolic Panel (08/27/22 13:48) Monitor-Rhythm Ecg Trace Only (08/27/22 13:48) Ed Iv/Invasive Line Start (08/27/22 13:48) Troponin I Jose (08/27/22 13:48) Aspirin Chewable Tablet (Baby Aspirin Ch (08/27/22 14:00) Albuterol/Ipra Inhalation Soln (Duoneb I (08/27/22 14:00) Svn Small Volume Nebulizer (08/27/22 13:54) Medications Given in ED Current Medications Medications Dose Ordered Sig/Evelyn Route Start Time Stop Time Status Last Admin Dose Admin Albuterol/ Ipratropium 3 ml ONCE ONCE INH 08/27/22 14:00 08/27/22 14:01 DC 08/27/22 14:12 3 ML Aspirin 324 mg ONCE ONCE PO 08/27/22 14:00 08/27/22 14:01 DC 08/27/22 14:03 324 MG Vital Signs/I&O 08/27/22 08/27/22 08/27/22 13:33 13:33 14:15 Pulse 81 Resp 20 B/P (MAP) 182/80 (114) Pulse Ox 98 100 O2 Delivery Room Air Room Air Room Air Capillary Refill : Less Than 3 Seconds Blood Pressure Mean: 114 ECG Comment Sinus rhythm at 80 bpm. Normal intervals. Normal axis. No ST or T wave abnormalities. No ectopy. Diagnostic Imaging Diagonstic Imaging: Xray Plain Films/CT/US/NM/MRI: chest Comments Chest x-ray shows flattening of diaphragms. Trace left-sided pleural effusion. Departure Communication (Admissions) Patient is hemodynamically stable. She does appear anxious, intermittently hyperventilating. Her lung almendraez are clear and heart sounds are normal. Vital signs are normal as well. She has had cardiac and respiratory work-up for the symptoms in the recent past. Chest x-ray is clear outside of a trace left-sided effusion and flattening of the diaphragms. Troponin is negative, EKG is normal, nonischemic. 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 Possible lung disease related to this however no evidence of ACS, acute respiratory failure, dysrhythmia, pneumonia or other infectious process, pneumothorax. No indication of risk factors for pulmonary embolus. she will be discharged home in stable condition with close follow-up. Impression Primary Impression: Chest pain Qualified Codes: R07.9 - Chest pain, unspecified Additional Impression: Dyspnea Qualified Codes: R06.00 - Dyspnea, unspecified Disposition: HOME, SELF-CARE Condition: Stable Departure-Patient Inst. Referrals: CRISTY LACY DO (PCP/Family) Primary Care Physician Patient Instructions: Chest Pain (DC), Shortness of Breath, Adult ED Add. Discharge Instructions: Your vital signs are normal. Your chest x-ray does not show any evidence for pneumonia. You do have a trace amount of fluid at the lower border of your left lung which is likely an incidental finding. Recommend you use your inhaler at home every 3 hours as needed. There is no indication that this is coming from your heart. Return to the emergency department for any severe concerns. See your primary doctor on Monday for any nonemergent needs. All discharge instructions reviewed with patient and/or family. Voiced understanding. GERTRUDE FERNANDO DO Aug 27, 2022 13:54
[2022-08-27 13:57] LABS: ALBUMIN 3.6 GM/DL (3.2-4.5); BASOPHILS % (AUTO) 1 % (0-10); EOSINOPHILS # (AUTO) 0.2 10^3/uL (0.0-0.3); EOSINOPHILS % (AUTO) 3 % (0-10); HEMATOCRIT 34 % (35-52); HEMOGLOBIN 11.1 g/dL (11.5-16.0); LYMPHOCYTES # (AUTO) 1.9 10^3/uL (1.0-4.0); LYMPHOCYTES % (AUTO) 30 % (12-44); MEAN CORPUSCULAR HEMOGLOBIN 29 pg (25-34); MEAN CORPUSCULAR HGB CONC 33 g/dL (32-36); MEAN CORPUSCULAR VOLUME 89 fL (80-99); MEAN PLATELET VOLUME 9.7 fL (9.0-12.2); MONOCYTES # (AUTO) 0.6 10^3/uL (0.0-1.0); MONOCYTES % (AUTO) 9 % (0-12); NEUTROPHILS # (AUTO) 3.7 10^3/uL (1.8-7.8); NEUTROPHILS % (AUTO) 58 % (42-75); PLATELET COUNT 217 10^3/uL (130-400); WHITE BLOOD COUNT 6.4 10^3/uL (4.3-11.0)
[2022-08-27 13:58] LABS: POTASSIUM 3.8 MMOL/L (3.6-5.0)
[2022-08-27 13:59] LABS: CALCIUM 8.7 MG/DL (8.5-10.1)
[2022-08-27 14:00] LABS: TOTAL PROTEIN 6.3 GM/DL (6.4-8.2)
[2022-08-27] MEDS ORDERED: ASPIRIN 81 MG CHEW (CHILDREN'S ASA) PO ONE (14:00)
[2022-08-27] MEDS ORDERED: RT-ALBUTEROL/IPRATROPIUM 3 ML (DUONEB) VIAL INH ONE (14:00)
[2022-08-27 14:02] LABS: BILIRUBIN,TOTAL 0.5 MG/DL (0.1-1.0)
[2022-08-27 14:04] LABS: CREATININE SERUM 0.83 MG/DL (0.60-1.30)
--- NOTE | 2022-08-27 14:25 | Diagnostic Imaging Report ---
INDICATION: Shortness of air. FINDINGS: The heart size is within normal limits. No vascular congestion. No focal consolidation. There is likely trace left basilar atelectasis. No definite pleural fluid. There is no pneumothorax. IMPRESSION: Minimal atelectasis. No acute-appearing abnormality. Dictated by: Dictated on workstation # [id number]
[2022-08-27 14:40] VITALS: BP 160/78
== END 2022-08-27 14:40 | disposition home or self-care (01) ==
LOC: EDUNIT# 13:31 → ER 13:34
DX: R07.89 Other chest pain (principal); R06.02 Shortness of breath; R06.4 Hyperventilation; Z86.16 Personal history of COVID-19
CPT/HCPCS: 36415; 71045; 80053; 84484; 85025; 93005; 93041; 94640